=== PATIENT | female | born 1965 | race Caucasian/White ===

== ENCOUNTER 2022-05-06 21:38 | Emergency (ER) | payer BC, SELFPAY ==
[2022-05-06 22:03] VITALS: BP 109/71; PULSE 106; RESP 18; TEMP 36.6; O2SAT 98
[2022-05-06 22:38] LABS: Appearance Urine Cloudy (Clear); Bacteria Urine Many; Bilirubin Urine Negative (Negative); Blood Urine 3+ (Negative); Color Urine Yellow (Yellow); Glucose Urine Negative (Negative); Ketones Urine Negative (Negative); Leukocyte Esterase Urine 3+ (Negative); Nitrite Urine Negative (Negative); Protein Urine 1+ (Negative); RBC Urine 50-100 (0-2); Squamous Epithelial Cell Urine Many (None-Few); Urobilinogen Urine 0.2 (0.2-1.0); WBC Urine 50-100 (0-5)
[2022-05-06 22:39] LABS: Amorphous Sediment Urine Few
--- NOTE | 2022-05-06 22:55 | ED.FEMALEGU ---
HPI - Female Genitourinary General Time Seen by Provider: 22:30 Date Seen: 05/06/22 Chief complaint: Urogenital Problems, Female Stated complaint: Possible UTI Time Seen by Provider: 05/06/22 22:53 Source: patient, RN notes reviewed and old records reviewed Mode of arrival: ambulatory Limitations: no limitations History of Present Illness HPI Narrative: Mauricio is a very pleasant 56-year-old female with a history IBS and recent treatment of UTI with Keflex who comes to the emergency room with the onset of urinary symptoms this evening. She notes that she had the onset of urgency and cloudiness of her urine and then noticed blood in her urine tonight. She denies fever chills nausea vomiting or back pain. She recently completed a course of Keflex. Last dose May 01. Previous to this she had a UTI in October and August. Patient states that her UTI seemed to be associated with IBS flares. MD elicited complaint: UTI Related Data Home Medications Medication Instructions Recorded Confirmed amitriptyline 10 mg tablet mg 05/06/22 cephalexin 500 mg capsule mg 05/06/22 gabapentin 300 mg capsule mg 05/06/22 galcanezumab-gnlm 120 mg/mL mg SUBCUT 05/06/22 subcutaneous pen injector (Emgality Pen) methylprednisolone 4 mg tablets in mg 05/06/22 a dose pack montelukast 10 mg tablet mg 05/06/22 prednisone 20 mg tablet mg 05/06/22 prednisone 50 mg tablet mg 05/06/22 rizatriptan 10 mg tablet mg 05/06/22 scopolamine base 1 mg over 3 days 05/06/22 transdermal patch tizanidine 2 mg tablet mg 05/06/22 verapamil 80 mg tablet mg 05/06/22 Allergies Allergy/AdvReac Type Severity Reaction Status Date / Time No Known Drug Allergies Allergy Verified 05/06/22 22:18 Review of Systems Narrative: Denies fever, chills, abdominal pain, back pain, vomiting. [facility] Medical History (Updated 05/06/22 @ 23:37 by Abel Hatch RN) No significant past medical history Surgical History (Updated 05/06/22 @ 23:37 by Abel Hatch RN) No significant past surgical history Social History Smoking Status: Never smoker Do you use any of these nicotine containing products: None How often do you have a drink containing alcohol: never How often do you have six or more drinks on one occasion: Never AUDIT-C Alcohol total score: 0 Non-prescribed substance use: denies use Exam Narrative: Exam Narrative: Patient is alert and oriented. Nontoxic in appearance. Neck is supple. Heart with regular rate and rhythm. Lungs are clear to auscultation Abdomen soft nontender. No CVA tenderness with percussion. Const: Vital Signs, click to edit/add: Vital Signs - 24 hr 05/06/22 22:03 Temperature 97.8 F Pulse Rate [Pulse Oximeter] 106 H Respiratory Rate 18 Blood Pressure [Ri t Upper Arm] 109/71 Pulse Oximetry 98 Course Course Hospital Course: Patient has no systemic symptoms at this time. Urinalysis clearly shows UTI with 3+ leukocyte air esterase RBCs number ring 50-100 and wbc's numbering 50-100. Will order culture. Mauricio did try to look up a recent sensitivities but this is not available in her [facility] chart. We did see that she grew out [id number] E coli. Vital Signs Vital signs: Initial Vital Signs Temperature 97.8 F 05/06/22 22:03 Temperature Source Temporal Artery Scan 05/06/22 22:03 Pulse Rate 106 H 05/06/22 22:03 Respiratory Rate 18 05/06/22 22:03 Blood Pressure 109/71 05/06/22 22:03 Blood Pressure Mean 83 05/06/22 22:03 Pulse Oximetry 98 05/06/22 22:03 Oxygen Delivery Method 05/06/22 22:03 Vital Signs Temperature 97.8 F 05/06/22 22:03 Pulse Rate 106 H 05/06/22 22:03 Respiratory Rate 18 05/06/22 22:03 Blood Pressure 109/71 05/06/22 22:03 Pulse Oximetry 98 05/06/22 22:03 Temperature 97.8 F 05/06/22 23:38 Pulse Rate 78 05/06/22 23:38 Respiratory Rate 18 05/06/22 23:38 Blood Pressure 135/78 05/06/22 23:38 Pulse Oximetry 98 05/06/22 22:03 MDM - Female Genitourinary MDM Narrative Medical decision making narrative: 1. UTI-given recent treatment with Keflex will switch to Cipro 500 mg p.o. b.i.d. times 7 days. Patient has no previous history of tendinitis. I did ask her to completely discontinue her medication should she started experiencing any joint pain. Follow up with her primary MD for possible candidate for antibiotic prophylaxis. Return to the emergency room for vomiting, fever, worsening symptoms and as needed. 2. Disposition-patient is discharged home. Cipro per [employer] Note patient is on tizanidine which will interact with Cipro. Patient states she cannot go without her muscle relaxer due to neck pain. We will switch patient to Macrobid 100 mg p.o. b.i.d. times 7 days via [employer] Medical Records Attestation: I reviewed the patient's medical records. Lab Data Attestation: I reviewed the patient's lab results. Labs: Lab Results 05/06/22 Range/Units 22:16 Urine Color Yellow (Yellow) Urine Appearance Cloudy A (Clear) Urine pH 6.0 (5.0-8.5) Ur Specific [place] 1.010 (1.000-1.030) Urine Protein 1+ A (Negative) Urine Glucose (UA) Negative (Negative) Urine Ketones Negative (Negative) Urine Blood 3+ A (Negative) Urine Nitrite Negative (Negative) Urine Bilirubin Negative (Negative) Urine Urobilinogen 0.2 (0.2-1.0) Ur Leukocyte Esterase 3+ A (Negative) Urine RBC 50-100 A (0-2) Urine WBC 50-100 A (0-5) Ur Squamous Epith Cells Many A (None-Few) Amorphous Sediment Few A (None) Urine Bacteria Many A (None) Discharge Plan Discharge Clinical Impression: Urinary tract infection Patient Disposition: Home, Self-Care Condition: Improved Additional Instructions: Start Macrobid tonight. We will await the official culture. Push fluids as much as possible. Follow-up with your primary for recheck. Return to the emergency room for vomiting, fever, increasing pain and as needed. Prescriptions: No Action tizanidine 2 mg tablet 0RF prednisone 20 mg tablet 0RF rizatriptan 10 mg tablet 0RF amitriptyline 10 mg tablet 0RF cephalexin 500 mg capsule 0RF prednisone 50 mg tablet 0RF Label Comments: TAKE 1 TABLET BY MOUTH 13, 7 AND 1 HOUR PRIOR TO EMGALITY INJECTION. USE ONE TIME PER MONTH FOR PRETREATMENT OF EMGALITY INJECTION gabapentin 300 mg capsule 0RF montelukast 10 mg tablet 0RF verapamil 80 mg tablet 0RF scopolamine base 1 mg over 3 days patch 3 day 0RF methylprednisolone 4 mg tablets,dose pack 0RF Emgality Pen 120 mg/mL pen injector SUBCUT 0RF Stand Alone Forms: MyHealth Info Instructions
[2022-05-06 23:38] VITALS: BP 135/78; PULSE 78; RESP 18; TEMP 36.6
== END 2022-05-06 23:15 | disposition home or self-care (01) ==
LOC: ED 23:15
PROVIDERS: Emergency Provider Family Medicine
DX: N39.0 Urinary tract infection, site not specified (principal)
CPT/HCPCS: 81003; 81015; 87086; 87186; 99283; 99284